=== PATIENT | female | born 1940 | race Caucasian/White ===

== ENCOUNTER 2019-12-29 17:55 | Inpatient (IN) | payer MEDICARE ==
[2019-12-29 18:51] LABS: Hemoglobin 13.2 g/dL (12.0-16.0); Mean Corpuscular HGB CONC 33.8 g/dL (32.0-36.0); Mean Corpuscular Hemoglobin 32.6 pg (27.0-31.0); Mean Corpuscular Volume 96.4 fL (78.0-98.0); Mean Platelet Volume 8.8 fL (7.4-10.4); Platelet Count 155 thou/uL (130-400); RBC Distribution Width 13.2 % (11.5-14.5); Red Blood Cell (RBC) Count 4.05 mill/uL (4.20-5.40); White Blood Cell (WBC) Count 3.3 thou/uL (4.8-10.8)
--- NOTE | 2019-12-29 19:00 | RAD ---
XR Chest 1 View Portable HISTORY: Altered mental status, lethargy, lower extremity swelling COMPARISON: None FINDINGS: The heart size is normal. The aorta is tortuous. The lungs are well expanded without focal areas of consolidation, pneumothorax or pleural effusions. A left humeral head prostheses is present. There are degenerative changes in the right shoulder joint and spine IMPRESSION: No radiographic evidence of acute cardiopulmonary process.
[2019-12-29] MEDS ORDERED: Cefepime 2 GM VIAL ONE (19:05)
[2019-12-29 19:11] LABS: ALT (SGPT) 9 U/L (8-55); AST (SGOT) 13 U/L (5-34); Albumin 3.3 g/dL (3.4-4.8); Alkaline Phosphatase 61 U/L (40-110); Anion Gap 17 mmol/L (10-20); BUN (Urea Nitrogen) 20 mg/dL (9.8-20.1); Bilirubin, Total 0.4 mg/dL (0.2-1.2); Calc. Creatinine Clearance 0 mL/min (70-130); Calcium 9.6 mg/dL (7.8-10.44); Carbon Dioxide 29 mmol/L (23-31); Chloride 99 mmol/L (98-107); Estimated GFR-MDRD 42; Globulin 2.8 g/dL (2.4-3.5); Glucose 89 mg/dL (83-110); Potassium 3.6 mmol/L (3.5-5.1); Protein, Total 6.1 g/dL (6.0-8.3); Sodium 141 mmol/L (136-145)
[2019-12-29 19:12] LABS: Band 10 % (5-11); Eosinophils 4 % (0-10); Lymphocytes 27 % (21-51); MDiff Complete? YES; Monocytes 16 % (0-10); Neutrophil 40 % (42-75); Platelet Morphology Comment Appears Adequate; Polychromasia SLIGHT = 2-3 cells (100X) (0-2/hpf); Reactive Lymphocytes 3 % (0-10)
[2019-12-29] MEDS ORDERED: Aspirin Chewable 81 MG TAB ONE ×2 (19:40)
--- NOTE | 2019-12-29 20:22 | PDOC.HHP ---
Hospitalist HPI - History of Present Illness Leg swelling History of Present Illness: 79 yo female with hypothyroidism and GERD is brought to ER by daughter due to swelling and redness in legs. Daughter at bedside and assisted with history. Patient's in Sep, 2019 and patient is now living with daughter in [place]. She was living in [place] previously. Patient will be going to Assisted living facility in January. Per daughter, patient usually has leg swelling. However, today, the patient developed redness in both her legs and the swelling is significantly worse. Patient denies any pain in her legs. Per daughter, patient had a [address] trip 1 week ago. No fever, chills. Patient denies CP, SOB, Cough, wheezing, N/V/D/C. No abdominal pain, burning or pain with urination. Per daughter, patient has reduced urine output since yesterday. Patient uses a walker and has had frequent falls. Patient takes opioids for chronic pain. Per daughter, patient is confused today and repeating the same phrases. Also, patient has been very sleepy since yesterday. Patient reports generalized weakness. ED Course: Given IV vanco and IV fluids Hospitalist ROS - Review of Systems All other systems reviewed; all pertinent +/- noted in HPI/Subj Hospitalist History - Past Medical History Source: patient, family Cardiac: reports: HTN Gastrointestinal: reports: GERD Musculoskeletal: reports: Chronic low back pain, Osteoarthritis, Other ( Fibromyalgia) Endocrine: reports: Hypothyroidism - Past Surgical History Past Surgical History: reports: Appendectomy, Cataract Removal, Mastectomy, Total Hip Replacement (Left), Total Knee Replacement (Bilateral) - Family History Family History: reports: no pertinent history (Reviewed) - Social History Smoking Status: Never smoker Alcohol: reports: None Drugs: reports: none Living Situation: With Family Activity level: uses cane/walker - Exam General Appearance: awake alert, ill appearing Eye: PERRL, anicteric sclera ENT: normocephalic atraumatic, no oropharyngeal lesions, dry oral mucosa Neck: supple, symmetric, no JVD, no thyromegaly, no lymphadenopathy Heart: RRR, no murmur, no gallops, normal peripheral pulses Respiratory: CTAB, no wheezes, normal chest expansion, no tachypnea Respiratory - other findings: not using accessory muscles of respiration Gastrointestinal: soft, non-tender, non-distended, normal bowel sounds, no palpable masses Extremities: no cyanosis, no clubbing, 1+ LE edema (bilateral lower extremities) Skin - other findings: bilateral lower extremity erythema; tender to palpation; warm and dry Neurological: cranial nerve grossly intact, normal sensation to touch, no focal deficits Musculoskeletal: normal tone, normal strength, no muscle wasting Psychiatric: normal affect, normal behavior, A&O x 3 Hospitalist Results - Labs Result Diagrams: 12/29/19 18:41 12/29/19 18:41 Lab results: WBC 3.3 thou/uL (4.8-10.8) L 12/29/19 18:41 Hgb 13.2 g/dL (12.0-16.0) 12/29/19 18:41 Hct 39.1 % (36.0-47.0) 12/29/19 18:41 MCV 96.4 fL (78.0-98.0) 12/29/19 18:41 Plt Count 155 thou/uL (130-400) 12/29/19 18:41 Band Neuts % (Manual) 10 % (5-11) 12/29/19 18:41 Sodium 141 mmol/L (136-145) 12/29/19 18:41 Potassium 3.6 mmol/L (3.5-5.1) 12/29/19 18:41 Chloride 99 mmol/L (98-107) 12/29/19 18:41 Carbon Dioxide 29 mmol/L (23-31) 12/29/19 18:41 BUN 20 mg/dL (9.8-20.1) 12/29/19 18:41 Creatinine 1.24 mg/dL (0.6-1.1) H 12/29/19 18:41 Glucose 89 mg/dL (83-110) 12/29/19 18:41 Lactic Acid 0.9 mmol/L (0.5-2.2) 12/29/19 19:11 Calcium 9.6 mg/dL (7.8-10.44) 12/29/19 18:41 Total Bilirubin 0.4 mg/dL (0.2-1.2) 12/29/19 18:41 AST 13 U/L (5-34) 12/29/19 18:41 ALT 9 U/L (8-55) 12/29/19 18:41 Alkaline Phosphatase 61 U/L (40-110) 12/29/19 18:41 Creatine Kinase 19 U/L (29-168) L 12/29/19 18:41 Serum Total Protein 6.1 g/dL (6.0-8.3) 12/29/19 18:41 Albumin 3.3 g/dL (3.4-4.8) L 12/29/19 18:41 - EKG Interpretation EKG: Personally reviewed - S.rhythm; Non-specific ST-T changes - Radiology Interpretation Chest x-ray Status: image reviewed by me (no consolidation or CP angle blunting seen) Hospitalist H&P A/P - Problem (1) Cellulitis Code(s): L03.90 - CELLULITIS, UNSPECIFIED Status: Acute Qualifiers: Site of cellulitis: extremity Site of cellulitis of extremity: lower extremity Laterality: unspecified laterality Qualified Code(s): L03.119 - Cellulitis of unspecified part of limb Assessment and Plan: Admit to inpatient status. Expected to stay at least 2 midnights High risk due to need for IV abx and risk of falls IV rocephin Monitor site of redness for resolution (2) HTN (hypertension) Code(s): I10 - ESSENTIAL (PRIMARY) HYPERTENSION Status: Chronic Qualifiers: Hypertension type: essential hypertension Qualified Code(s): I10 - Essential (primary) hypertension Assessment and Plan: Hold HTN meds due to dehydration IV fluids for now Monitor BP and resume home meds as needed (3) GERD (gastroesophageal reflux disease) Code(s): K21.9 - GASTRO-ESOPHAGEAL REFLUX DISEASE WITHOUT ESOPHAGITIS Status: Chronic Qualifiers: Esophagitis presence: esophagitis presence not specified Qualified Code(s) : K21.9 - Gastro-esophageal reflux disease without esophagitis (4) Chronic low back pain Code(s): M54.5 - LOW BACK PAIN; G89.29 - OTHER CHRONIC PAIN Status: Chronic Qualifiers: Back pain laterality: midline Sciatica presence: without sciatica Qualified Code(s): M54.5 - Low back pain; G89.29 - Other chronic pain Assessment and Plan: On dilaudid BID at home; On Baclofen at home Resume as PRN basis Topical lidocaine (5) Fibromyalgia Status: Chronic Assessment and Plan: Dilaudid, baclofen, lidocaine (6) Osteoarthritis Code(s): M19.90 - UNSPECIFIED OSTEOARTHRITIS, UNSPECIFIED SITE Status: Chronic Qualifiers: Osteoarthritis location: unspecified site
[2019-12-29] MEDS ORDERED: Acetaminophen 500 MG TAB PO PRN (20:35)
[2019-12-29] MEDS ORDERED: Ondansetron PF 4 MG/2 ML Vial IVP PRN (20:36)
--- NOTE | 2019-12-29 20:42 | CT ---
CT BRAIN WITHOUT CONTRAST: HISTORY:Altered mental status COMPARISON:None FINDINGS: There are foci of decreased attenuation in the periventricular white matter, consistent with chronic small vessel ischemic disease. No evidence of acute infarct, hemorrhage, midline shift or abnormal extra-axial fluid collections is seen. The ventricular size is appropriate and the basilar cisterns are patent. The bony calvarium is intact. The visualized paranasal sinuses and mastoid air cells are well aerated. IMPRESSION: No CT evidence of acute intracranial process.
--- NOTE | 2019-12-29 21:36 | ULT ---
EXAM: Bilateral lower extremity venous Doppler US HISTORY: bilateral lower extremity edema and pain FINDINGS: Grayscale, color-flow, Doppler evaluation, spectral analysis of the bilateral lower extremities venou s structures is performed with 2-D imaging. The bilateral common femoral, superficial femoral, popliteal, posterior tibial, proximal greater saphenous and profunda femoral veins are imaged. There is normal luminal compressibility, flow, and augmentation in the visualized deep venous structu res of the bilateral lower extremities. IMPRESSION: No evidence of a deep vein thrombosis in either lower extremity.
[2019-12-30] MEDS ORDERED: HYDROmorphone 2 MG TAB PO PRN (00:02)
[2019-12-30] MEDS ORDERED: Polyethylene Glycol 3350 17 GM Packet PO PRN (00:02)
[2019-12-30] MEDS ORDERED: Naloxone HCl 0.4 mg/ml Vial IV PRN (00:02)
[2019-12-30 00:41] VITALS: BMI 30.5
[2019-12-30] MEDS: cefTRIAXone\\ROCEPHIN 1 GM in Sodium Chloride 0.9% 100 ML IVPB SCH ×2 (00:57→21:51)
[2019-12-30] MEDS: Heparin 5,000 UNITS/ML VIAL SC SCH ×3 (00:59→20:02)
[2019-12-30 05:13] LABS: Bilirubin Negative (Negative); Blood, Urine Negative (Negative); Clarity Clear (Clear); Glucose, Urine (Dipstick) Normal (Negative); Leukocyte Negative Leu/uL (Negative); Nitrite Negative (Negative); Protein, Urine (Dipstick) Negative (Neg-Trace); Urobilinogen Normal mg/dL (Less than 2)
[2019-12-30 06:20] LABS: #Eosinphils 0.1 thou/uL (0.0-0.7); #Lymphocytes 0.9 thou/uL (1.20-3.40); #Monocytes 0.5 thou/uL (0.11-0.59); #Neutrophils 1.9 thou/uL (1.40-6.50); %Basophils 0.8 % (0.0-1.0); %Eosinophils 2.9 % (0.0-10.0); %Lymphocytes 25.4 % (21.0-51.0); %Monocytes 14.9 % (0.0-10.0); %Neutrophils 55.9 % (42.0-75.0); Hemoglobin 12.6 g/dL (12.0-16.0); Mean Corpuscular Hemoglobin 31.5 pg (27.0-31.0); Mean Corpuscular Volume 95.3 fL (78.0-98.0); Mean Platelet Volume 8.8 fL (7.4-10.4); Platelet Count 147 thou/uL (130-400); RBC Distribution Width 13.1 % (11.5-14.5); Red Blood Cell (RBC) Count 4.01 mill/uL (4.20-5.40); White Blood Cell (WBC) Count 3.4 thou/uL (4.8-10.8)
[2019-12-30 06:50] LABS: ALT (SGPT) 10 U/L (8-55); AST (SGOT) 14 U/L (5-34); Albumin 3.1 g/dL (3.4-4.8); Alkaline Phosphatase 60 U/L (40-110); Anion Gap 12 mmol/L (10-20); BUN (Urea Nitrogen) 15 mg/dL (9.8-20.1); Bilirubin, Total 0.4 mg/dL (0.2-1.2); Calc. Creatinine Clearance 54 mL/min (70-130); Calcium 9.1 mg/dL (7.8-10.44); Carbon Dioxide 29 mmol/L (23-31); Chloride 104 mmol/L (98-107); Estimated GFR-MDRD 52; Globulin 2.5 g/dL (2.4-3.5); Glucose 86 mg/dL (83-110); Potassium 3.3 mmol/L (3.5-5.1); Protein, Total 5.6 g/dL (6.0-8.3); Sodium 142 mmol/L (136-145)
[2019-12-30] MEDS ORDERED: FLU VACC TS2019-20(65YR UP)/PF 180 MCG/0.5 ML SYRINGE IM ONE (09:00)
[2019-12-30] MEDS ORDERED: Lidocaine 5% Patch TD SCH ×2 (09:00)
[2019-12-30] MEDS ORDERED: Potassium Chloride 20 MEQ TAB PO SCH (10:00)
[2019-12-30] MEDS ORDERED: Baclofen 10 MG TAB PO SCH (10:30)
--- NOTE | 2019-12-30 15:25 | PDOC.HOSPP ---
- Subjective Encounter Date: 12/30/19 Encounter Time: 10:15 Subjective: pt up in bed no complains. spoke with pt's daughter who states that pt has been confused for some time now. she is not sure if there has been any dementia screening. According to the pt's daughter she has been getting more confused at night. - Objective Vital Signs & Weight: Vital Signs (12 hours) Temp Pulse Resp BP Pulse Ox 12/30/19 11:21 98.9 F 79 18 145/75 H 92 L 12/30/19 07:38 98.9 F 100 18 145/74 H 91 L 12/30/19 03:46 98.9 F 88 20 149/89 H 94 L Weight Weight 172 lb 5 oz I&O: 12/29/19 12/30/19 12/31/19 06:59 06:59 06:59 Intake Total 320 Output Total 400 Balance -80 Result Diagrams: 12/30/19 05:49 12/30/19 05:49 Hospitalist ROS - Review of Systems Cardiovascular: denies: chest pain, palpitations, orthopnea, paroxysmal noc. dyspnea, edema, light headedness, other Gastrointestinal: denies: nausea, vomiting, abdominal pain, diarrhea, constipation, melena, hematochezia, other Genitourinary: denies: dysuria, frequency, incontinence, hematuria, retention, other - Medication Medications: Active Medications Generic Name Dose Route Start Last Admin Trade Name Freq PRN Reason Stop Dose Admin Heparin Sodium (Porcine) 5,000 units 12/29/19 21:00 12/30/19 08:52 Heparin SC 5,000 units BID DAYA Administration Ceftriaxone Sodium 1 gm/ 100 mls @ 200 mls/hr 12/29/19 22:00 12/30/19 00:57 Sodium Chloride IVPB 100 mls 2200 DAYA Administration - Exam Heart: negative: RRR, no murmur, no gallops, no rubs, normal peripheral pulses, irregular, diminshed peripheral pulses, murmur present, II/IV, III/IV Respiratory: negative: CTAB, no wheezes, no rales, no ronchi, normal chest expansion, no tachypnea, normal percussion, rales, rhonchi, tachypneic, wheezes Gastrointestinal: negative: soft, non-tender, non-distended, normal bowel sounds , no palpable masses, no hepatomegaly, no splenomegaly, no bruit, no guarding, no rigidity, tender to palpation, distended, diminished bowl sounds, voluntary guarding Extremities - other findings: mild erythema to lower ext left >R Hosp A/P (1) Dementia Code(s): F03.90 - UNSPECIFIED DEMENTIA WITHOUT BEHAVIORAL DISTURBANCE Status: Acute (2) Cellulitis Code(s): L03.90 - CELLULITIS, UNSPECIFIED Status: Acute Qualifiers: Site of cellulitis: extremity Site of cellulitis of extremity: lower extremity Laterality: unspecified laterality Qualified Code(s): L03.119 - Cellulitis of unspecified part of limb (3) Chronic low back pain Code(s): M54.5 - LOW BACK PAIN; G89.29 - OTHER CHRONIC PAIN Status: Chronic Qualifiers: Back pain laterality: midline Sciatica presence: without sciatica Qualified Code(s): M54.5 - Low back pain; G89.29 - Other chronic pain (4) Fibromyalgia Status: Chronic (5) HTN (hypertension) Code(s): I10 - ESSENTIAL (PRIMARY) HYPERTENSION Status: Chronic Qualifiers: Hypertension type: essential hypertension Qualified Code(s): I10 - Essential (primary) hypertension (6) Osteoarthritis Code(s): M19.90 - UNSPECIFIED OSTEOARTHRITIS, UNSPECIFIED SITE Status: Chronic Qualifiers: Osteoarthritis location: unspecified site (7) Hypothyroid Code(s): E03.9 - HYPOTHYROIDISM, UNSPECIFIED Status: Acute - Plan will continue abx for now. she had some dysuria but her UA is normal and she is on abx that would cover for uti. PT has been ordered. will start her on seroquel to avoid delirium. will lower her synthroid dose since her tsh is low. she has not been officially dx with dementia but has been showing signs of it according to her daughter. Her low ext dopplers are negative for dvt and her ct brain does not indicate any acute pathology.
[2019-12-30] MEDS: Baclofen 10 MG TAB PO SCH (20:00)
[2019-12-30] MEDS: HYDROmorphone 2 MG TAB PO SCH (20:00)
[2019-12-30 20:16] VITALS: TEMP 98.4
[2019-12-30] MEDS ORDERED: Non-Formulary Item 1 EACH (Baclofen [Baclofen] 20 MG) PO SCH (21:00)
[2019-12-30] MEDS ORDERED: HYDROMORPHONE HCL 4 MG PO SCH (21:00)
[2019-12-30] MEDS ORDERED: Lidocaine Patch Removal 1 EACH TOP SCH ×2 (21:00)
[2019-12-31] MEDS ORDERED: Levothyroxine Sodium 50 MCG TAB PO SCH (06:00)
[2019-12-31 07:51] VITALS: BP 144/75
[2019-12-31] MEDS: HYDROmorphone 2 MG TAB PO SCH (08:22)
[2019-12-31] MEDS: Baclofen 10 MG TAB PO SCH (08:22)
[2019-12-31] MEDS: Heparin 5,000 UNITS/ML VIAL SC SCH (08:23)
[2019-12-31] MEDS ORDERED: CHOLECALCIFEROL 1250 MCG PO SCH (09:00)
[2019-12-31] MEDS ORDERED: Potassium Chloride 20 MEQ TAB PO SCH (10:00)
--- NOTE | 2019-12-31 17:38 | DIS ---
DATE OF ADMISSION: 12/29/2019 DATE OF DISCHARGE: 12/31/2019 DISCHARGE DIAGNOSES: As of the followin. Cellulitis to lower extremity. 2. Dementia, not officially diagnosed. 3. Hypothyroidism. HOSPITAL COURSE: The patient is an 79-year-old female, who recently moved in with her daughter after her , and according to the daughter, she has been showing significant signs of memory loss. According to the daughter, she has never been officially tested for dementia; however, she would not be surprised if she has dementia. I have after encouraged her to follow up with her local primary care, who she initially established care, to do an outpatient testing when the patient is medically stable. The patient was found to have some redness in her left greater than right lower extremity. At this time, lower extremity Dopplers were done. The Dopplers did not show any signs of DVT. They had also mentioned about some confusion. At this time, a CT brain was also done, which was negative. After further talking to the patient's daughter, she stated that the patient wanders at nighttime. She really does not sleep very much. In the hospital, her TSH was checked, and her TSH was found to be very low. At this time, her medications were adjusted appropriately. She continued to improve. The patient was evaluated by Physical Therapy, who encouraged the patient to ambulate with the walker. The patient is going to be going to an assisted living next month. The patient will be discharged home. I will continue the antibiotics for a total of 7 days, and I have also started her on some Seroquel only at 12.5 mg at night. There was a concern about the patient's pain medications; however, I will not make any changes since she has been on those for a very long time, and according to the patient and the patient's daughter, she has had significant lower back surgeries, and she has had some narrowing, and I do not feel comfortable stopping any of the pain medications. She will follow up again with her primary care doctor. HOME MEDICATIONS: 1. Doxycycline 100 mg twice a day. 2. Levothyroxine 50 mcg from 75 mcg. 3. Quetiapine 12.5 mg daily. 4. Hydromorphone 4 mg twice a day. 5. Baclofen 20 mg twice a day. 6. Vitamin D3. 7. Hydrochlorothiazide 25 mg daily. PHYSICAL EXAMINATION: VITAL SIGNS: Temperature of 98.4, heart rate 71, 92% on room air, respiratory rate 16, blood pressure 144/75. GENERAL: She is awake, alert, and oriented x3. Does not appear in pain or distress. CV: S1 and S2 present. No murmurs, rubs, or gallops. ABDOMEN: Soft and nontender. Bowel sounds are present x2. EXTREMITIES: Her lower extremity erythema has significantly improved. DISPOSITION: Again, she will be discharged home. FOLLOWUP: She will follow up with her primary. Job ID: [id number]
--- NOTE | 2020-01-01 04:45 | PQF ---
VIRGIE SCHROEDER KAYE [id number] CLINICAL DOCUMENTATION CLARIFICATION FORM: POST DISCHARGE Addendum to original discharge summary date: ____ Late entry note date: __ DATE: 01/01/2020 ATTN: Kaye Hwang Please exercise your independent, professional judgment in responding to the clarification form. Clinical indicators are provided on the bottom of this form for your review Please check appropriate box(s): [ ] Acute Metaboilic Encephalopathy [ ] Acute Toxic Encephalopathy [ ] Dementia [ ] Transient Alteration of Awareness [ ] Other diagnosis [ ] Unable to determine In addition, please specify: Present on Admission (POA): [ ] Yes [ ] No [ ] Unable to determine For continuity of documentation, please document condition throughout progress notes and discharge summary. Thank You. CLINICAL INDICATORS - SIGNS / SYMPTOMS / LABS Laboratory 12/29 WBC 3.3, Neutrophils 40%, Monocytes 16, lactic Acid 0.9, Ammonia 19, Potassium 3.3, TSH 3rd Generation 0.2277 H&P p1 12/29 Dr Timmons Pt uses a walker and has had frequent falls H&P p1 12/29 Dr Timmons Per daughter, pt is confused today and repeating the same phrases. Also, pt has been very sleepy since yesterday. Pt reports generalized weakness Hospitalist PN p1 12/30 Dr Crawley spoke with pt's daughter who states that pt has been confused for some time now, she is not sure if there gas been any dementia screening DS p1 12/31 Dr Crawley Dementia, not officially diagnosed DS p1 12/31 Dr Crawley After further talking to the patient's daughter, she stated that the patient wanders at nighttime. She really does not sleep very much. RISK FACTORS H&P p1 12/29 79 year old Female H&P p1 12/29 Hypothyroidism H&P p1 12/29 Taking opioids for Chronic pain H&P p1 12/29 Fibromyalgia H&P p4 12/29 Cellulitis TREATMENTS: JAN 10 IV Vancomycin 1gm JAN 10 IVF 1L JAN 10 Aspirin Chewable 81mg JAN 10 IV Cefepime 2gm JAN 10 Seroquel 25mg po JAN 10 K-Dur 40 meq po JAN 10 Synthroid 50mcg po (This form is maintained as a part of the permanent medical record) 2014 [employer]. All Rights Reserved [email or web address]
== END 2019-12-31 15:18 | disposition home health service (06) | DRG 603 ==
LOC: ERS 17:55 → T4-B 19:47
PROVIDERS: ADMIT Internal Medicine Sleep Medicine; ATTEND Internal Medicine
DX: L03.115 Cellulitis of right lower limb (principal); Z66 Do not resuscitate; F03.90 Unspecified dementia, unspecified severity, without behavioral disturbance, psychotic disturbance, mood disturbance, and anxiety; E03.9 Hypothyroidism, unspecified; K21.9 Gastro-esophageal reflux disease without esophagitis; G89.29 Other chronic pain; M54.5 Low back pain; M19.90 Unspecified osteoarthritis, unspecified site; M79.7 Fibromyalgia; Z96.653 Presence of artificial knee joint, bilateral; Z96.642 Presence of left artificial hip joint; Z28.21 Immunization not carried out because of patient refusal; Z88.0 Allergy status to penicillin; Z90.49 Acquired absence of other specified parts of digestive tract; Z85.3 Personal history of malignant neoplasm of breast; Z90.13 Acquired absence of bilateral breasts and nipples
CPT/HCPCS: 36415; 70450; 71045; 80053; 81003; 82140; 82550; 83605; 84436; 84443; 85025; 87040; 93005; 93970; 96365; 96367; J0692; J0696; J1644; J3370; J3490

== ENCOUNTER 2020-05-16 05:52 | Outpatient (CLI) | payer MEDICARE, OTHER ==
[2020-05-17 13:10] LABS: SARS-CoV-2 MS2 Positive; SARS-CoV-2 N Gene Negative; SARS-CoV-2 S Gene Negative; SARS-CoV-2 orf1ab Negative
== END 2020-05-16 05:53 | disposition home or self-care (01) ==
LOC: LABBT 05:52
PROVIDERS: ATTEND Internal Medicine Gastroenterology
DX: Z01.812 Encounter for preprocedural laboratory examination (principal); Z11.59 Encounter for screening for other viral diseases; R09.89 Other specified symptoms and signs involving the circulatory and respiratory systems; R93.3 Abnormal findings on diagnostic imaging of other parts of digestive tract; F45.8 Other somatoform disorders
CPT/HCPCS: 87635; U0003

== ENCOUNTER 2020-05-19 10:54 | Day surgery (SDC) | payer MEDICARE ==
[2020-05-12 14:40] VITALS: BMI 28.5
[2020-05-19] MEDS ORDERED: Lidocaine 1% PF 5 ML VIAL ONE (11:28)
[2020-05-19] MEDS ORDERED: PROPOFOL 200 MG/20 ML VIAL ONE (11:28)
--- NOTE | 2020-05-19 18:55 | OP ---
DATE OF PROCEDURE: 05/19/2020 PROCEDURE PERFORMED: Esophagogastroduodenoscopy with biopsy. PREPROCEDURE DIAGNOSES: 1. Abnormal barium swallow. 2. Globus sensation. POSTPROCEDURE DIAGNOSES: 1. Exam to second portion of duodenum. 2. 2 cm sliding hiatal hernia. 3. No evidence of erosive esophagitis or esophageal ulcer, lower esophagus biopsied for histopathology. 4. Normal stomach. 5. Normal duodenum. DESCRIPTION OF PROCEDURE: Written informed consent was obtained. The patient was brought to the endoscopy suite. Total intravenous anesthesia was administered by Dr. Isreal Brown and associates. The patient was placed in the left lateral decubitus position. A bite block was inserted into the mouth. The [employer] video diagnostic gastroscope was introduced into the oral cavity, and the esophagus was carefully intubated. The gastroscope was advanced under direct visualization to the second portion of the duodenum. Endoscopic findings revealed grossly normal appearing esophagus with overall normal motility. No luminal narrowing or stricture was identified. In the distal esophagus, a 2 cm sliding hiatal hernia was identified. The squamocolumnar junction was estimated at 35 cm from the incisors. No erosive esophagitis or esophageal ulcer was identified. Biopsies were obtained in the lower esophagus for histopathology. The stomach was then entered and carefully examined. This included a retroflexed view of the cardia and fundus. There were no abnormalities. The duodenum from the bulb to the second portion also appeared normal. The stomach was decompressed as the endoscope was removed from the patient. She was transferred to the Day Stay surgery area for postprocedure monitoring. There were no immediate complications. RECOMMENDATIONS: 1. Await biopsy results. 2. Resume previous medications. 3. Low-fat diet. 4. Initiate a 6-week course of Protonix 40 mg daily. 5. Follow up in GI Clinic by tele health visit in 1 month. Job ID: [id number]
== END 2020-05-19 14:50 | disposition home or self-care (01) ==
LOC: SDC 10:54
PROVIDERS: ATTEND Internal Medicine Gastroenterology
PROC: 0DB38ZX Excision of Lower Esophagus, Via Natural or Artificial Opening Endoscopic, Diagnostic (ICD-10-PCS; principal; 2020-05-19)
DX: F45.8 Other somatoform disorders (principal); R93.3 Abnormal findings on diagnostic imaging of other parts of digestive tract; K44.9 Diaphragmatic hernia without obstruction or gangrene; Z79.82 Long term (current) use of aspirin; Z79.899 Other long term (current) drug therapy; Z88.0 Allergy status to penicillin; Z88.8 Allergy status to other drugs, medicaments and biological substances
CPT/HCPCS: 88305; 88312; 88313; J2704